=== PATIENT | female | born 1985 | race Asian ===

== ENCOUNTER 2022-02-19 12:44 | Inpatient (IN) | payer MEDICARE, MEDICAID ==
[~2022-02-19] VITALS: Ht 167.6 cm; Wt 76.7 kg
[2022-02-19] MEDS ORDERED: INSULIN (12:47)
[2022-02-19] MEDS ORDERED: SODIUM CHLORIDE 0.9% 1,000 ML IV ONE ×2 (13:00)
[2022-02-19 15:17] LABS: INR 1.1
[2022-02-19 15:18] LABS: CHLORIDE 99 mEq/L (98-107)
[2022-02-19 15:19] LABS: BASOPHILS % 0.2 % (0.0-2.0); EOSINOPHILS % 0.3 % (0.0-5.0); HEMATOCRIT. 36.4 % (36.0-48.0); HEMOGLOBIN. 11.8 g/dL (12.0-16.0); LYMPHOCYTES % 14.1 % (20.0-50.0); MEAN CORPUSCULAR HEMOGLOBIN 27.7 pg (28.0-32.0); MEAN CORPUSCULAR VOLUME 85.2 fL (81.0-99.0); MEAN PLATELET VOLUME 7.4 fl (7.4-10.4); MONOCYTES % 6.5 % (2.0-8.0); NEUTROPHILS % 78.9 % (40.0-76.0); PLATELET 495 x1000/uL (130-400); RED BLOOD CELL COUNT 4.27 mill/uL (4.2-5.4); RED CELL DISTRIBUTION WIDTH 13.3 % (11.6-14.6)
[2022-02-19 15:32] LABS: BETA HYDROXYBUTYRATE 5.1 mMol/L (0.0-0.3); ETHANOL BLOOD < 10 mg/dL
[2022-02-19 15:38] LABS: CLARITY URINE CLEAR (CLEAR); COLOR URINE YELLOW (YELLOW); KETONES URINE 4+ (NEGATIVE); LEUKOCYTE ESTERASE URINE 1+ (NEGATIVE); NITRITE URINE NEGATIVE (NEGATIVE); OCCULT BLOOD URINE 2+ (NEGATIVE); PH URINE 5.5 (4.5-8.0); PROTEIN URINE 1+ (NEGATIVE); SPECIFIC GRAVITY URINE 1.019 (1.005-1.030); UROBILINOGEN URINE 0.2 E.U./dL (0.2-1.0)
[2022-02-19 16:10] LABS: HCG SCREEN NEGATIVE
[2022-02-19] MEDS ORDERED: DEXTROSE 50% WATER 50ML SYRINGE IV PRN (16:30)
[2022-02-19] MEDS ORDERED: ACETAMINOPHEN 325MG TABLET PO ONE (17:00)
[2022-02-19] MEDS ORDERED: IBUPROFEN 600MG TABLET PO ONE (17:00)
[2022-02-19 18:01] LABS: CHLORIDE 105 mEq/L (98-107)
[2022-02-19] MEDS ORDERED: LACTATED RINGERS 1,000 ML IV SCH ×2 (18:30→21:00)
[2022-02-19] MEDS ORDERED: POTASSIUM CHLORIDE 20MEQ TABLET SR PO ONE (18:30)
[2022-02-19] MEDS ORDERED: KCL 10MEQ/50ML PREMIX 50 ML IV ONE (18:30)
[2022-02-19 18:35] LABS: BG BASE EXCESS -12.7 mmol/L (-2.0-2.0); BG CARBOXYHEMOGLOBIN 0.4 % (0.5-1.5); BG FRACTION INSPIRED OXYGEN 21; BG HCO3 ACT 11.8 mmol/L (22.0-26.0); BG METHEMOGLOBIN 0.4 % (0.0-1.5); BG OXYHEMOGLOBIN 97.2 % (94.0-97.0); BG PCO2 23.9 mmHg (35.0-45.0); BG PH 7.312 (7.350-7.450); BG PO2 110.7 mmHg (75.0-100.0); BG SAMPLE SITE RIGHT RADIAL; BG TOTAL HEMOGLOBIN 10.9 g/dL (12.0-18.0); BG VENT MODE ROOM AIR
[2022-02-19] MEDS ORDERED: CEFTRIAXONE 1 G PREMIX 50 ML IV ONE (18:45)
[2022-02-19] MEDS ORDERED: LACTATED RINGERS 1,000 ML IV ONE (18:45)
[2022-02-19] MEDS: BLOOD SUGAR DIAGNOSTIC STRIP TEST SCH (18:57)
[2022-02-19] MEDS: INSULIN LISPRO 100 UNITS/ML SUBCUT SCH (19:01)
[2022-02-19] MEDS ORDERED: KCL 10MEQ/50ML PREMIX 50 ML IV NR (21:00)
[2022-02-19] MEDS ORDERED: INSULIN GLARGINE 100 UNITS/ML SUBCUT SCH (22:00)
[2022-02-20] MEDS ORDERED: ONDANSETRON HCL 4MG/2ML INJ IV PRN (01:15)
[2022-02-20] MEDS ORDERED: CLONIDINE 0.1MG TABLET PO PRN (01:15)
[2022-02-20 01:46] LABS: CHLORIDE 110 mEq/L (98-107)
[2022-02-20] MEDS: BLOOD SUGAR DIAGNOSTIC STRIP TEST SCH ×5 (02:12→19:43)
[2022-02-20] MEDS: INSULIN LISPRO 100 UNITS/ML SUBCUT SCH ×6 (02:24→20:36)
[2022-02-20] MEDS: INSULIN GLARGINE 100 UNITS/ML SUBCUT SCH ×2 (02:25→09:33)
[2022-02-20] MEDS: SODIUM CHLORIDE 0.9% 1,000 ML IV SCH ×3 (06:20→18:43)
[2022-02-20] MEDS: ENOXAPARIN 40MG/0.4ML SYR SUBCUT SCH (09:33)
[2022-02-20 17:06] VITALS: BP 122/67
[2022-02-20 18:28] VITALS: BP 122/67
[2022-02-20 19:36] VITALS: BP 117/65
[2022-02-20 23:58] VITALS: BP 111/69
[2022-02-21] MEDS: SODIUM CHLORIDE 0.9% 1,000 ML IV SCH ×2 (00:25→09:15)
[2022-02-21 03:36] VITALS: BP 120/66
[2022-02-21] MEDS: BLOOD SUGAR DIAGNOSTIC STRIP TEST SCH ×4 (05:46→21:50)
[2022-02-21 07:19] LABS: BASOPHILS % 0.6 % (0.0-2.0); EOSINOPHILS % 1.2 % (0.0-5.0); HEMATOCRIT. 30.6 % (36.0-48.0); HEMOGLOBIN. 10.3 g/dL (12.0-16.0); LYMPHOCYTES % 22.9 % (20.0-50.0); MEAN CORPUSCULAR HEMOGLOBIN 27.3 pg (28.0-32.0); MEAN CORPUSCULAR VOLUME 81.3 fL (81.0-99.0); MEAN PLATELET VOLUME 7.4 fl (7.4-10.4); MONOCYTES % 9.1 % (2.0-8.0); NEUTROPHILS % 66.2 % (40.0-76.0); PLATELET 471 x1000/uL (130-400); RED BLOOD CELL COUNT 3.76 mill/uL (4.2-5.4); RED CELL DISTRIBUTION WIDTH 13.3 % (11.6-14.6)
[2022-02-21 08:00] VITALS: BP 128/74
[2022-02-21 08:05] LABS: CHLORIDE 104 mEq/L (98-107)
[2022-02-21] MEDS ORDERED: DEXTROSE 50% WATER 50ML SYRINGE IV PRN (08:30)
[2022-02-21] MEDS: ENOXAPARIN 40MG/0.4ML SYR SUBCUT SCH (09:13)
[2022-02-21] MEDS: INSULIN GLARGINE 100 UNITS/ML SUBCUT SCH ×2 (09:15→21:52)
[2022-02-21] MEDS ORDERED: INFLUENZA VACCINE 05/PF 0.5 ML SYRINGE IM ONE (10:00)
[2022-02-21] MEDS ORDERED: POTASSIUM CHLORIDE 20MEQ TABLET SR PO NR (10:30)
[2022-02-21] MEDS ORDERED: POTASSIUM CHLORIDE INJ 40 MEQ in DEXT 5% WATER 250 ML IV ONE (10:30)
[2022-02-21] MEDS: ACETAMINOPHEN 325MG TABLET PO PRN (10:59)
[2022-02-21] MEDS: KCL 20MEQ/100ML X 2 FOR TOTAL KCL 40MEQ/200ML IV SCH ×2 (11:00→13:56)
[2022-02-21 12:30] VITALS: BP 106/64
[2022-02-21] MEDS: INSULIN LISPRO 100 UNITS/ML SUBCUT SCH ×3 (12:33→21:51)
[2022-02-21 16:07] VITALS: BP 106/68
[2022-02-21] MEDS ORDERED: MAGNESIUM 2 G PREMIX 50 ML IV NR (19:30)
[2022-02-21 20:00] VITALS: BP 125/84
[2022-02-21 20:57] LABS: CHLORIDE 104 mEq/L (98-107)
[2022-02-21] MEDS: RISPERIDONE 1MG TABLET PO SCH (21:50)
[2022-02-22] VITALS: BP 120/75
[2022-02-22 04:00] VITALS: BP 124/79
[2022-02-22] MEDS: SODIUM CHLORIDE 0.9% 1,000 ML IV SCH ×2 (04:10→09:15)
[2022-02-22] MEDS: BLOOD SUGAR DIAGNOSTIC STRIP TEST SCH ×4 (06:43→21:24)
[2022-02-22 07:44] VITALS: BP 117/67
[2022-02-22] MEDS: INSULIN LISPRO 100 UNITS/ML SUBCUT SCH ×4 (07:54→21:33)
[2022-02-22] MEDS: RISPERIDONE 1MG TABLET PO SCH (08:22)
[2022-02-22] MEDS: ENOXAPARIN 40MG/0.4ML SYR SUBCUT SCH (08:24)
[2022-02-22 09:18] LABS: CHLORIDE 102 mEq/L (98-107)
[2022-02-22] MEDS: ACETAMINOPHEN 325MG TABLET PO PRN (10:24)
[2022-02-22 11:41] VITALS: BP 117/73
[2022-02-22 15:45] VITALS: BP 116/70
[2022-02-22 20:00] VITALS: BP 115/65
[2022-02-22] MEDS: INSULIN GLARGINE 100 UNITS/ML SUBCUT SCH (21:32)
[2022-02-23] MEDS: BLOOD SUGAR DIAGNOSTIC STRIP TEST SCH ×4 (06:15→20:20)
[2022-02-23 08:00] VITALS: BP 114/69
[2022-02-23] MEDS: ENOXAPARIN 40MG/0.4ML SYR SUBCUT SCH (08:54)
[2022-02-23] MEDS: RISPERIDONE 1MG TABLET PO SCH ×2 (08:54→20:20)
[2022-02-23] MEDS: INSULIN LISPRO 100 UNITS/ML SUBCUT SCH ×4 (08:55→20:27)
[2022-02-23 12:00] VITALS: BP 112/68
[2022-02-23 15:20] LABS: *AMPHETAMINES SCREEN URINE NEGATIVE (NEGATIVE); *BARBITURATES SCREEN URINE NEGATIVE (NEGATIVE); *BENZODIAZEPINES SCREEN URINE NEGATIVE (NEGATIVE); *COCAINE SCREEN URINE NEGATIVE (NEGATIVE); CANNABINOID URINE SCREEN NEGATIVE (NEGATIVE); METHADONE URINE SCREEN NEGATIVE (NEGATIVE); OPIATES URINE SCREEN NEGATIVE (NEGATIVE); PHENCYCLIDINE URINE SCREEN NEGATIVE (NEGATIVE)
[2022-02-23 16:00] VITALS: BP 125/84
[2022-02-23 20:00] VITALS: BP 111/67
[2022-02-23] MEDS: INSULIN GLARGINE 100 UNITS/ML SUBCUT SCH (20:26)
[2022-02-24 04:00] VITALS: BP 114/71
[2022-02-24] MEDS: BLOOD SUGAR DIAGNOSTIC STRIP TEST SCH ×2 (06:21→11:50)
[2022-02-24 08:00] VITALS: BP 120/73
[2022-02-24] MEDS: RISPERIDONE 1MG TABLET PO SCH (08:04)
[2022-02-24] MEDS: ENOXAPARIN 40MG/0.4ML SYR SUBCUT SCH (08:04)
[2022-02-24] MEDS: INSULIN LISPRO 100 UNITS/ML SUBCUT SCH ×2 (08:05→12:10)
[2022-02-24 10:36] LABS: CHLORIDE 98 mEq/L (98-107)
[2022-02-24 11:30] VITALS: BP 115/71
[2022-02-24 12:32] VITALS: BP 120/73
[2022-02-24] MEDS ORDERED: MIRTAZAPINE 15MG TABLET PO SCH (21:00)
== END 2022-02-24 18:16 | DRG 638 ==
LOC: ER 12:44 → EDBEDREQ 18:36 → EDBEDREQSVC 18:36 → EDBEDREQTM 18:36 → MICUSO 02-20 00:08 → 3WST 02-20 16:52
PROVIDERS: ADMIT Internal Medicine; ATTEND Internal Medicine
DX: E10.65 Type 1 diabetes mellitus with hyperglycemia (principal); F33.1 Major depressive disorder, recurrent, moderate; F20.9 Schizophrenia, unspecified; E87.6 Hypokalemia; Z20.822 Contact with and (suspected) exposure to COVID-19; F29 Unspecified psychosis not due to a substance or known physiological condition; F41.1 Generalized anxiety disorder; Z79.4 Long term (current) use of insulin
CPT/HCPCS: 36415; 36600; 71045; 80048; 80053; 80305; 80320; 81003; 82010; 82375; 82805; 82962; 83036; 83605; 83735; 84484; 84703; 85025; 87426; 87804; 90686; 93005; 99291; C9803; J0696; J1650; J1815; J2405; J3475; J3480; J7030; J7120; G0480